=== PATIENT | female | born 1945 | race Caucasian/White ===

== ENCOUNTER 2023-11-03 09:18 | Outpatient (CLI) | payer OTHER ==
[2023-11-03 10:52] LABS: URINE APPEARANCE Clear; URINE BILIRRUBIN Negative (NEGATIVE); URINE BLOOD Moderate; URINE COLOR Yellow; URINE GLUCOSE Negative (NEGATIVE); URINE LEUKOCYTE Small; URINE NITRATE Negative; URINE PROTEIN Negative (NEGATIVE); URINE UROBILINOGEN 0.2 E.U./dl
[2023-11-03 10:55] LABS: HEMATOCRIT 40.7 % (36.0-45.00); HEMOGLOBIN 13.4 g/dL (12.0-15.00); MEAN CELL VOLUME 90.2 fL (80.00-100.00); MEAN CORPUSCULAR HEMOGLOBIN 29.8 pg (27.00-32.0); PLATELET COUNT 309 K/uL (150-450); RED BLOOD COUNT 4.51 M/uL (4.00-6.00)
[2023-11-03 10:56] LABS: URINE BACTERIA 1031.8 uL (0.0-1933); URINE EPITHELIAL CELLS 36.7 uL (0.0-38.8); URINE RBC 45.1 uL (0.0-20.8); URINE WBC 17.4 uL (0.0-23.2)
[2023-11-03 10:58] LABS: ERYTHROCYTE SEDIMENTATION RATE 17 mm/hr
[2023-11-03 11:40] LABS: ALBUMIN 3.7 gm/dL (3.4-5.0); BILIRUBIN TOTAL 0.37 mg/dL (0.3-1.2); CALCIUM 9.2 mg/dL (8.5-10.1); CHOL HDL RATIO 4.4 (0-5.0); CREATININE SERUM 0.67 mg/dL (0.55-1.02); GFR 85.35; GLOBULINA 3.6 G/DL (2.4-3.5); POTASSIUM 3.57 mEq/L (3.5-5.1); TOTAL PROTEIN 7.3 gm/dL (6.4-8.2); TSH 0.728 uIU/mL (0.358-3.74)
[2023-11-03 12:42] LABS: FOLIC ACID 12.36 ng/ml (4.78-20); VITAMIN D3 25 HYDROXY 40.12 ng/ml (30-120)
[2023-11-04 08:57] LABS: ob NEGATIVE (NEGATIVE)
== END 2023-11-03 10:53 | disposition home or self-care (01) ==
LOC: LAB 09:18
DX: E78.5 Hyperlipidemia, unspecified (principal); R73.9 Hyperglycemia, unspecified; D64.9 Anemia, unspecified; R70.0 Elevated erythrocyte sedimentation rate; E03.9 Hypothyroidism, unspecified; D51.8 Other vitamin B12 deficiency anemias; Z12.11 Encounter for screening for malignant neoplasm of colon; R10.84 Generalized abdominal pain; E55.9 Vitamin D deficiency, unspecified; D52.8 Other folate deficiency anemias; N39.0 Urinary tract infection, site not specified; R80.9 Proteinuria, unspecified

== ENCOUNTER 2023-11-03 11:46 | Outpatient (CLI) | payer OTHER | END 2023-11-03 11:51 | disposition home or self-care (01) | LOC: RAD 11:46 | DX: M79.672 Pain in left foot (principal) ==

== ENCOUNTER 2024-02-29 08:26 | Outpatient (CLI) | payer OTHER | END 2024-02-29 08:36 | disposition home or self-care (01) | LOC: RAD 08:26 | DX: M19.079 Primary osteoarthritis, unspecified ankle and foot (principal) ==

== ENCOUNTER → 2024-09-22 07:50 | Outpatient (CLI) | payer OTHER ==
[2024-09-22 08:31] LABS: HEMATOCRIT 42.7 % (36.0-45.00); HEMOGLOBIN 14.3 g/dL (12.0-15.00); MEAN CELL VOLUME 91.3 fL (80.00-100.00); MEAN CORPUSCULAR HEMOGLOBIN 30.6 pg (27.00-32.0); MEAN CORPUSCULAR HGB CONC 33.6 g/dl (32.0-36.0); PLATELET COUNT 275 K/uL (150-450); RED BLOOD COUNT 4.68 M/uL (4.00-6.00); RED CELL DISTRIBUTION WIDTH 15.6 % (11.5-14.5)
[2024-09-22 08:47] LABS: PH,URINE 5.5 (5.0-8.0); URINE APPEARANCE Clear; URINE BILIRRUBIN Negative (NEGATIVE); URINE BLOOD Small; URINE COLOR Yellow; URINE GLUCOSE Negative (NEGATIVE); URINE KETONE Negative (NEGATIVE); URINE LEUKOCYTE Negative; URINE NITRATE Negative; URINE PROTEIN Trace (NEGATIVE); URINE UROBILINOGEN 0.2 E.U./dl
[2024-09-22 08:52] LABS: URINE BACTERIA 46.5 uL (0.0-1933); URINE EPITHELIAL CELLS 19.7 uL (0.0-38.8); URINE RBC 40.6 uL (0.0-20.8); URINE WBC 5.8 uL (0.0-23.2)
[2024-09-22 09:14] LABS: ALBUMIN 3.7 gm/dL (3.4-5.0); BILIRUBIN TOTAL 0.43 mg/dL (0.3-1.2); C-REACTIVE PROTEIN 0.43 MG/DL (0.00-0.29); CALCIUM 9.1 mg/dL (8.5-10.1); CHOL HDL RATIO 3.2 (0-5.0); CREATININE SERUM 0.7 mg/dL (0.55-1.02); FREE TRIODOTIRONINE 3.11 pg/ml (2.18-3.98); GFR 80.93; GLOBULINA 3.4 G/DL (2.4-3.5); POTASSIUM 3.97 mEq/L (3.5-5.1); T4 FREE 0.87 NG/ML (0.76-1.46); TOTAL PROTEIN 7.1 gm/dL (6.4-8.2); TSH 1.64 uIU/mL (0.358-3.74)
[2024-09-22 09:35] LABS: VITAMIN D3 25 HYDROXY 45.15 ng/ml (30-120)
== END | disposition home or self-care (01) ==
LOC: LAB 07:50
PROVIDERS: ATTEND General Practice
DX: D64.9 Anemia, unspecified (principal); E86.0 Dehydration; E03.8 Other specified hypothyroidism; E55.9 Vitamin D deficiency, unspecified; E53.8 Deficiency of other specified B group vitamins; E11.65 Type 2 diabetes mellitus with hyperglycemia; Z12.11 Encounter for screening for malignant neoplasm of colon; I11.9 Hypertensive heart disease without heart failure; E78.2 Mixed hyperlipidemia; N39.0 Urinary tract infection, site not specified

== ENCOUNTER 2024-09-22 08:18 | Outpatient (CLI) | payer OTHER | END 2024-09-22 08:23 | disposition home or self-care (01) | LOC: MAMO-SONO 08:18 | PROVIDERS: ATTEND General Practice | DX: N64.4 Mastodynia (principal) ==

== ENCOUNTER 2024-09-23 11:56 | Outpatient (CLI) | payer OTHER ==
[2024-09-23 12:28] LABS: ob NEGATIVE (NEGATIVE)
== END 2024-09-23 11:57 | disposition home or self-care (01) ==
LOC: LAB 11:56
PROVIDERS: ATTEND General Practice
DX: D64.9 Anemia, unspecified (principal); E86.0 Dehydration; E03.8 Other specified hypothyroidism; E55.9 Vitamin D deficiency, unspecified; E53.8 Deficiency of other specified B group vitamins; E11.65 Type 2 diabetes mellitus with hyperglycemia; Z12.11 Encounter for screening for malignant neoplasm of colon; I11.9 Hypertensive heart disease without heart failure; E78.2 Mixed hyperlipidemia; N39.0 Urinary tract infection, site not specified

== ENCOUNTER 2024-10-12 12:56 | Outpatient (CLI) | payer OTHER | END 2024-10-12 12:57 | disposition home or self-care (01) | LOC: NUCLEAR 12:56 | PROVIDERS: ATTEND General Practice | DX: M81.0 Age-related osteoporosis without current pathological fracture (principal) ==

== ENCOUNTER 2025-01-31 08:06 | Outpatient (CLI) | payer OTHER ==
[2025-01-31 09:14] LABS: URINE APPEARANCE Clear; URINE BILIRRUBIN Negative (NEGATIVE); URINE BLOOD Small; URINE COLOR Yellow; URINE GLUCOSE Negative (NEGATIVE); URINE KETONE Negative (NEGATIVE); URINE LEUKOCYTE Moderate; URINE NITRATE Negative; URINE PROTEIN Negative (NEGATIVE); URINE UROBILINOGEN 0.2 E.U./dl
[2025-01-31 09:18] LABS: URINE BACTERIA 343.8 uL (0.0-1933); URINE EPITHELIAL CELLS 39.7 uL (0.0-38.8); URINE RBC 69.5 uL (0.0-20.8); URINE WBC 91.6 uL (0.0-23.2)
== END 2025-01-31 08:10 | disposition home or self-care (01) ==
LOC: LAB 08:06
PROVIDERS: ATTEND General Practice
DX: E11.65 Type 2 diabetes mellitus with hyperglycemia (principal); N39.0 Urinary tract infection, site not specified; E83.42 Hypomagnesemia; I11.9 Hypertensive heart disease without heart failure

== ENCOUNTER 2025-02-13 07:24 | Outpatient (CLI) | payer OTHER ==
[2025-02-13 08:32] LABS: URINE APPEARANCE Clear; URINE BILIRRUBIN Negative (NEGATIVE); URINE BLOOD Negative; URINE COLOR Yellow; URINE GLUCOSE Negative (NEGATIVE); URINE KETONE Negative (NEGATIVE); URINE LEUKOCYTE Negative; URINE NITRATE Negative; URINE PROTEIN 30 (NEGATIVE); URINE UROBILINOGEN 0.2 E.U./dl
[2025-02-13 09:05] LABS: URINE BACTERIA 0 uL (0.0-1933); URINE EPITHELIAL CELLS 1.2 uL (0.0-38.8); URINE RBC 1.3 uL (0.0-20.8); URINE WBC 1.1 uL (0.0-23.2)
== END 2025-02-13 07:27 | disposition home or self-care (01) ==
LOC: LAB 07:24
PROVIDERS: ATTEND General Practice
DX: N39.0 Urinary tract infection, site not specified (principal)

== ENCOUNTER → 2025-04-25 07:16 | Outpatient (CLI) | payer OTHER ==
[2025-04-25 07:52] LABS: BASO % 0.8 % (0.1-1.2); EOS # 0.19 (0.04-0.54); EOS % 2.1 % (0.7-7.0); LYMPH # 3.10 (1.18-3.74); LYMPH % 34.4 % (19.3-53.1); MEAN PLATELET VOLUME 10.10 fl (9.4-12.4); MONO # 0.66 (0.24-0.82); MONO % 7.3 % (4.7-12.5); NEUT # 4.97 (1.56-6.13); NEUT % 55.3 % (34.0-71.1); RED CELL DISTRIBUTION WIDTH 13.8 % (11.6-14.4)
[2025-04-25 07:54] LABS: URINE APPEARANCE Clear; URINE BILIRRUBIN Negative (NEGATIVE); URINE BLOOD Moderate; URINE COLOR Yellow; URINE GLUCOSE Negative (NEGATIVE); URINE KETONE Trace (NEGATIVE); URINE LEUKOCYTE Trace; URINE NITRATE Negative; URINE PROTEIN 30 (NEGATIVE); URINE UROBILINOGEN 0.2 E.U./dl
[2025-04-25 07:58] LABS: URINE BACTERIA 126.0 uL (0.0-1933); URINE EPITHELIAL CELLS 45.2 uL (0.0-38.8); URINE RBC 105.3 uL (0.0-20.8); URINE WBC 22.6 uL (0.0-23.2)
[2025-04-25 08:16] LABS: INR 1.0
[2025-04-25 08:28] LABS: URINE CAST 0.29 uL (0.0-1.40)
[2025-04-25 09:01] LABS: ALT/SGPT 23 U/L (12-78); AST/SGOT 17 U/L (15-37); BILIRUBIN TOTAL 0.32 mg/dL (0.3-1.2); BUN CREA RATIO 13 (7.0-25.0); CHOL HDL RATIO 3.6 (0-5.0); CREATININE SERUM 0.71 mg/dL (0.55-1.02); GFR 79.41; GLOBULINA 3.4 G/DL (2.4-3.5); GLUCOSE FASTING 95 mg/dL (65-100); HDL 59 mg/dl (40-60); OSMOLALITY SERUM 285 MOSM/KG (275-295)
[2025-04-25 09:06] LABS: LDL 101 mg/dl (0-130); VLDL 52 (0-39)
[2025-04-25 10:19] LABS: TSH 1.380 uIU/mL (0.358-3.74)
[2025-04-25 13:25] LABS: VITAMIN D3 25 HYDROXY 34.17 ng/ml (30-120)
== END | disposition home or self-care (01) ==
LOC: LAB 07:16
PROVIDERS: ATTEND General Practice
DX: D64.9 Anemia, unspecified (principal); E11.65 Type 2 diabetes mellitus with hyperglycemia; D68.9 Coagulation defect, unspecified; E86.0 Dehydration; E03.8 Other specified hypothyroidism; E55.9 Vitamin D deficiency, unspecified; E53.8 Deficiency of other specified B group vitamins; Z12.11 Encounter for screening for malignant neoplasm of colon; I11.9 Hypertensive heart disease without heart failure; N39.0 Urinary tract infection, site not specified; E72.11 Homocystinuria